=== PATIENT | female | born 1945 | race Caucasian/White ===

== ENCOUNTER 2025-07-27 06:47 | Day surgery (SDC) | payer MEDICARE, BC ==
[2025-07-27] MEDS: Povidone-Iodine 5% Sterile Ophth Soln 30 ML Bottle EYELF ONE ×2 (07:38→08:23)
[2025-07-27] MEDS: Moxifloxacin 0.5% Ophth Soln 3 ML Bottle EYELF ONE (07:38)
[2025-07-27] MEDS: Phenylephrine 10% Ophth Soln 5 ML Bot EYELF PRN (07:39)
[2025-07-27] MEDS: Timolol Maleate 0.5% Ophth Soln 5 ML Bottle EYELF ONE (07:40)
[2025-07-27] MEDS: Cataract Ophth Solution EYELF ONE (07:40)
[2025-07-27] MEDS ORDERED: Ondansetron 4 MG/2 ML SDV IVPUSH PRN (08:00)
[2025-07-27] MEDS: Apraclonidine 0.5% Ophth Soln 5 ML Bot EYELF ONE (08:23)
[2025-07-27] MEDS: Lidocaine 1% with EPINEPHrine 1:100,000 20 ML MDV INJECT ONE (08:24)
[2025-07-27] MEDS: Dexamethasone/Neomycin/Polymyxin B Ophth Oint 3.5 GM Tube EYELF ONE (08:24)
[2025-07-27] MEDS ORDERED: Dexamethasone 4 MG/ML SDV ONE (09:25)
== END 2025-07-27 09:20 | disposition home or self-care (01) ==
LOC: DL.SDS 06:47
PROVIDERS: ATTEND Ophthalmology
DX: E11.36 Type 2 diabetes mellitus with diabetic cataract (principal); H25.813 Combined forms of age-related cataract, bilateral; I10 Essential (primary) hypertension; E66.9 Obesity, unspecified; E03.9 Hypothyroidism, unspecified; Z88.8 Allergy status to other drugs, medicaments and biological substances; Z68.38 Body mass index [BMI] 38.0-38.9, adult; Z79.82 Long term (current) use of aspirin; Z79.899 Other long term (current) drug therapy; Z79.890 Hormone replacement therapy
CPT/HCPCS: 66984; A9270; J2004; J3373; J3490

== ENCOUNTER 2025-08-10 06:55 | Day surgery (SDC) | payer MEDICARE, BC ==
[~2025-08-10 06:55] MED LIST: Sodium Chloride 0.9% 10 ML Syringe FLUSH PRN
[2025-08-10] MEDS ORDERED: Ondansetron 4 MG/2 ML SDV IVPUSH PRN (07:00)
[2025-08-10] MEDS: Povidone-Iodine 5% Sterile Ophth Soln 30 ML Bottle EYERT ONE ×2 (09:03→10:44)
[2025-08-10] MEDS: Moxifloxacin 0.5% Ophth Soln 3 ML Bottle EYERT ONE (09:06)
[2025-08-10] MEDS: Phenylephrine 10% Ophth Soln 5 ML Bot EYERT ONE (09:08)
[2025-08-10] MEDS: Timolol Maleate 0.5% Ophth Soln 5 ML Bottle EYERT ONE (09:09)
[2025-08-10] MEDS: Cataract Ophth Solution EYERT ONE (09:10)
[2025-08-10] MEDS: Apraclonidine 0.5% Ophth Soln 5 ML Bot EYERT ONE (10:44)
[2025-08-10] MEDS: Diclofenac Sodium 0.1% Ophth Soln 5 ML Bottle EYERT ONE (10:45)
[2025-08-10] MEDS: Dexamethasone/Neomycin/Polymyxin B Ophth Oint 3.5 GM Tube EYERT ONE (10:45)
== END 2025-08-10 11:36 | disposition home or self-care (01) ==
LOC: DL.SDS 06:55
PROVIDERS: ATTEND Ophthalmology
DX: E11.36 Type 2 diabetes mellitus with diabetic cataract (principal); H26.9 Unspecified cataract; E78.00 Pure hypercholesterolemia, unspecified; I10 Essential (primary) hypertension; E03.9 Hypothyroidism, unspecified; E66.9 Obesity, unspecified; F41.9 Anxiety disorder, unspecified; Z88.8 Allergy status to other drugs, medicaments and biological substances; Z68.38 Body mass index [BMI] 38.0-38.9, adult; Z79.899 Other long term (current) drug therapy; Z79.890 Hormone replacement therapy
CPT/HCPCS: 66984; A9270; J2003; J3373; J3490

== ENCOUNTER 2025-09-14 23:08 | Emergency (ER) | payer MEDICARE, BC ==
[2025-09-14] MEDS: Iopamidol 612 MG/ML 100 ML Bottle IVPUSH ONE (23:10)
[2025-09-14] MEDS ORDERED: Sodium Chloride 0.9% 10 ML Syringe FLUSH PRN (23:10)
[2025-09-14 23:30] LABS: BASOPHILS PERCENT AUTO 0.3 % (0.0-1.0); EOSINOPHILS PERCENT AUTO 0.7 % (1.0-3.0); LYMPHOCYTES PERCENT AUTO 18.0 % (20.5-50.1); MONOCYTES PERCENT AUTO 6.8 % (2-8); NEUTROPHILS PERCENT AUTO 74.2 % (42.2-75.2); PLATELET COUNT,PLT 246 10^3/uL (150-450); RED BLOOD CELL COUNT 3.56 10^6/uL (4.2-5.4); WHITE BLOOD CELL COUNT,WBC 12.3 10^3/uL (5.0-10.0)
[2025-09-14] MEDS: Ondansetron 4 MG/2 ML SDV IVPUSH ONE (23:37)
[2025-09-14 23:59] LABS: A/G RATIO 0.88; ALANINE AMINOTRANSFERASE,ALT 27.0 U/L (14-59); ASPARTATE AMNIOTRANSFERASE,AST 17.0 U/L (15-37); BILIRUBIN TOTAL 0.4 mg/dL (0.2-1.0); BLOOD UREA NITROGEN,BUN 25.0 mg/dL (7-18); CARBON DIOXIDE,CO2 26.0 mmol/L (21-32); CHLORIDE,CL 103.0 mmol/L (98-107); CREATININE 0.92 mg/dL (0.55-1.02); EST CRCL DRUG DOSING (CG) 38.03 mL/min; ESTIMATED GFR 64.0 mL/min (>=60); GLUCOSE RANDOM 286.0 mg/dL (70-99); POTASSIUM,K 4.5 mmol/L (3.5-5.1); PROTEIN TOTAL,TP 6.0 g/dL (6.4-8.2); SODIUM,NA 140.0 mmol/L (136-145)
[2025-09-15 02:39] LABS: LYMPHOCYTES PERCENT AUTO 13.4 % (20.5-50.1); NEUTROPHILS PERCENT AUTO 82.1 % (42.2-75.2); PLATELET COUNT,PLT 241 10^3/uL (150-450); RED BLOOD CELL COUNT 3.26 10^6/uL (4.2-5.4); WHITE BLOOD CELL COUNT,WBC 12.7 10^3/uL (5.0-10.0)
[2025-09-15 02:40] LABS: BASOPHILS PERCENT AUTO 0.2 % (0.0-1.0); EOSINOPHILS PERCENT AUTO 0.2 % (1.0-3.0); MONOCYTES PERCENT AUTO 4.1 % (2-8)
[2025-09-15 03:21] LABS: BAND PERCENT MAN 4 %; LYMPHOCYTES PERCENT MAN 8 % (20-50); MONOCYTES PERCENT MAN 3 % (2-8); SEG NEUTROPHILS PERCENT MAN 85 % (42-75)
== END 2025-09-15 03:36 ==
LOC: DL.ED 23:08
DX: K92.2 Gastrointestinal hemorrhage, unspecified (principal); I10 Essential (primary) hypertension; E78.00 Pure hypercholesterolemia, unspecified; Z88.8 Allergy status to other drugs, medicaments and biological substances; Z79.82 Long term (current) use of aspirin; Z79.899 Other long term (current) drug therapy; Z79.890 Hormone replacement therapy; Z90.710 Acquired absence of both cervix and uterus
CPT/HCPCS: 36415; 74177; 80053; 82272; 85025; 86850; 86900; 86901; 96365; 96375; 99285-25; J2405; J2470; Q9967